=== PATIENT | male | born 1965 | race Caucasian/White ===

== ENCOUNTER 2019-09-13 15:04 | Emergency (ER) | payer MEDICAID ==
[~2019-09-13] VITALS: Ht 172.7 cm; Wt 100.0 kg
[2019-09-13] MEDS ORDERED: PREDNISONE 20MG TABLET PO STA (18:05)
[2019-09-13] MEDS ORDERED: IPRATROPIUM BROMIDE (0.02%) 0.5MG/2.5ML NEB HHN STA (18:05)
[2019-09-13] MEDS ORDERED: ALBUTEROL (0.083%) 2.5MG/3ML NEB HHN STA (18:05)
[2019-09-13 20:09] VITALS: BP 115/65
== END 2019-09-13 20:09 | disposition home or self-care (01) ==
LOC: ER 15:04
DX: J18.9 Pneumonia, unspecified organism (principal); J45.901 Unspecified asthma with (acute) exacerbation; R03.0 Elevated blood-pressure reading, without diagnosis of hypertension
CPT/HCPCS: 71045; 94640; 99283; J7512; J7611; Z7610

== ENCOUNTER 2019-10-06 07:04 | Emergency (ER) | payer MEDICAID ==
[~2019-10-06] VITALS: Ht 167.6 cm; Wt 90.0 kg
[2019-10-06 07:58] VITALS: BP 100/53
[2019-10-06] MEDS ORDERED: ALBUTEROL (0.083%) 2.5MG/3ML NEB HHN STA (09:35)
[2019-10-06] MEDS ORDERED: IPRATROPIUM BROMIDE (0.02%) 0.5MG/2.5ML NEB HHN STA (09:35)
[2019-10-06] MEDS ORDERED: IBUPROFEN 600MG TABLET PO STA (09:35)
[2019-10-06] MEDS ORDERED: PREDNISONE 20MG TABLET PO STA (09:35)
== END 2019-10-06 10:51 | disposition home or self-care (01) ==
LOC: ER 07:54
DX: J45.901 Unspecified asthma with (acute) exacerbation (principal); J06.9 Acute upper respiratory infection, unspecified
CPT/HCPCS: 71045; 94640; 99283; J7512; J7610; Z7610

== ENCOUNTER 2019-10-14 05:44 | Emergency (ER) | payer MEDICAID ==
[~2019-10-14] VITALS: Ht 180.3 cm; Wt 87.0 kg
[2019-10-14] MEDS ORDERED: KETOROLAC 60MG/2ML VIAL IM ONE (06:30)
[2019-10-14 07:02] VITALS: BP 147/84
== END 2019-10-14 07:03 | disposition home or self-care (01) ==
LOC: ER 05:44
DX: M54.5 Low back pain (principal); Z88.0 Allergy status to penicillin; Z98.890 Other specified postprocedural states
CPT/HCPCS: 96372; 99283; J1885

== ENCOUNTER 2020-09-30 19:54 | Emergency (ER) | payer MEDICAID, OTHER ==
[~2020-09-30] VITALS: Ht 175.3 cm; Wt 92.7 kg
[2020-09-30 20:12] VITALS: BP 114/74
== END 2020-09-30 20:46 | disposition home or self-care (01) ==
LOC: ER 19:54
DX: Z53.21 Procedure and treatment not carried out due to patient leaving prior to being seen by health care provider (principal)

== ENCOUNTER 2021-07-26 10:22 | Emergency (ER) | payer OTHER ==
[~2021-07-26] VITALS: Ht 177.8 cm; Wt 95.0 kg
[2021-07-26 10:53] LABS: HEMATOCRIT. 43.5 % (42.0-52.0); HEMOGLOBIN. 14.6 g/dL (14.0-18.0); MEAN CORPUSCULAR HEMOGLOBIN 30.4 pg (28.0-32.0); MEAN CORPUSCULAR VOLUME 90.4 fL (80.0-94.0); MEAN PLATELET VOLUME 9.8 fl (7.4-10.4); PLATELET 179 x1000/uL (130-400); RED BLOOD CELL COUNT 4.81 mill/uL (4.7-6.1); RED CELL DISTRIBUTION WIDTH 13.6 % (11.6-14.6)
[2021-07-26 10:59] LABS: CHLORIDE 106 mEq/L (98-107)
[2021-07-26] MEDS ORDERED: CYCLOBENZAPRINE 10MG TABLET PO ONE (11:30)
[2021-07-26 12:22] LABS: PLATELET ESTIMATE NORMAL
[2021-07-26] MEDS ORDERED: IBUP-2030 MT (14:17)
[2021-07-26] MEDS ORDERED: CYCL10TA7 MT (14:17)
[2021-07-26 14:50] VITALS: BP 132/65
== END 2021-07-26 15:07 | disposition home or self-care (01) ==
LOC: ER 10:22
DX: R07.89 Other chest pain (principal); M54.12 Radiculopathy, cervical region; J45.909 Unspecified asthma, uncomplicated; E11.9 Type 2 diabetes mellitus without complications; I10 Essential (primary) hypertension; Z88.0 Allergy status to penicillin
CPT/HCPCS: 36415; 71101; 72040; 80053; 84484; 85025; 93005; 99285

== ENCOUNTER 2021-07-27 21:37 | Emergency (ER) | payer OTHER ==
[~2021-07-27] VITALS: Ht 172.7 cm; Wt 96.0 kg
[~2021-07-27 21:37] MED LIST: CYCL10TA7 MT; IBUP-2030 MT
[2021-07-27 21:51] VITALS: BP 140/62
[2021-07-27] MEDS ORDERED: KETOROLAC 30MG/ML VIAL IM ONE (22:30)
== END 2021-07-27 23:58 | disposition home or self-care (01) ==
LOC: ER 21:37
DX: M25.511 Pain in right shoulder (principal); T50.Z95A Adverse effect of other vaccines and biological substances, initial encounter; Y92.89 Other specified places as the place of occurrence of the external cause; I10 Essential (primary) hypertension; J45.909 Unspecified asthma, uncomplicated; Z88.0 Allergy status to penicillin; R03.0 Elevated blood-pressure reading, without diagnosis of hypertension
CPT/HCPCS: 93005; 96372; 99283; J1885

== ENCOUNTER 2023-08-16 11:29 | Emergency (ER) | payer OTHER ==
[~2023-08-16] VITALS: Ht 177.8 cm; Wt 96.0 kg
[~2023-08-16 11:29] MED LIST changes: +CYCL10TA21 MT; -CYCL10TA7 MT
[2023-08-16 11:41] VITALS: O2SAT 99
[2023-08-16] MEDS ORDERED: CLIN-194 MT (13:14)
[2023-08-16] MEDS ORDERED: SULF1TAB48 MT (13:14)
[2023-08-16 14:38] VITALS: BP 136/77; PULSE 82; RESP 18; TEMP 98
== END 2023-08-16 14:41 | disposition home or self-care (01) ==
LOC: ER 11:29
DX: L03.213 Periorbital cellulitis (principal); H00.015 Hordeolum externum left lower eyelid; I10 Essential (primary) hypertension; J45.909 Unspecified asthma, uncomplicated; Z88.0 Allergy status to penicillin
CPT/HCPCS: 99283